=== PATIENT | male | born 1955 | race Two or more races ===

== ENCOUNTER 2018-10-17 23:16 | Inpatient (IN) | payer OTHER ==
[~2018-10-17] VITALS: Ht 165.1 cm; Wt 83.0 kg
--- NOTE | 2018-10-18 04:34 | NUR ---
RN MS ADMISSION NOTES RECEIVED PATIENT DIRECT ADMIT FROM [facility]. CHIEF COMPLAINT: ABD PAIN, FEVER, CHILLS. PATIENT IS ALERT AND ORIENTED X4, VERBALLY RESPONSIVE, ABLE TO MAKE NEEDS KNOWN. LITHUANIAN SPEAKER. BREATHING EVEN AND UNLABORED. NO SOB NOTED. TOLERATING ROOM AIR. DENIES PAIN OR DISCOMFORT AT THE MOMENT. DENIES N/V. DENIES CP. IV ON RIGHT AC INTACT AND PATENT. SKIN DRY AND WARM TO TOUCH. AFEBRILE. SKIN CHECK RENDERED WITH NO SKIN ISSUES NOTED. ALL BELONGINGS ACCOUNTED FOR. DR. JAYCE JOYNER PAGED FOR ADMISSION ORDERS. ALL OTHER NEEDS ATTENDED TO. SAFETY MEASURES IN PLACE. CALL LIGHT WITHIN REACH. WILL CONTINUE TO MONITOR. Addendum: 10/18/18 at 0701 by KAMALJIT PATRICK RN ORIENTED TO THE USE OF UNIT AMENITIES. INSTRUCTED ON THE USE OF CALL LIGHT.
[2018-10-18] MEDS ORDERED: PRAV10TA40 PO (04:43)
[2018-10-18] MEDS ORDERED: METF-441 PO (04:43)
--- NOTE | 2018-10-18 04:55 | NUR ---
RN MS NOTES PAGED DR. JAYCE JOYNER FOR ADMISSION ORDERS.
[2018-10-18 05:00] VITALS: BP 151/94
--- NOTE | 2018-10-18 05:22 | NUR ---
RN MS NOTES 2ND ATTEMPT TO PAGE DR. JAYCE JOYNER FOR ADMISSION ORDERS.
--- NOTE | 2018-10-18 05:35 | NUR ---
RN MS NOTES DR. JOYNER PAGED BACK AND MADE AWARE OF PATIENT'S ADMISSION. PER DR. JOYNER, HE WILL COME UP TO SEE CHART AND PATIENT.
[2018-10-18] MEDS ORDERED: MAG HYDROX/AL HYDROX/SIMETH 30 ML UDC PO PRN (06:00)
[2018-10-18] MEDS ORDERED: MAGNESIUM HYDROXIDE 30 ML UDC PO PRN (06:00)
[2018-10-18] MEDS ORDERED: PIPERACILLIN /TAZOBACTAM 3.375 G in IV D5W 50 ML IV SCH (06:00)
[2018-10-18] MEDS ORDERED: Z GUARD REMEDY 2 OZ OINT TP PRN (06:00)
[2018-10-18] MEDS ORDERED: MORPHINE SULFATE INJ 2 MG/ML DISP.SYRIN IV PRN (06:00)
[2018-10-18] MEDS ORDERED: DEXTROSE 50%-WATER 50 ML DISP.SYRIN IV PRN (06:00)
[2018-10-18] MEDS ORDERED: ONDANSETRON HCL/PF 4 MG/2 ML VIAL IVP PRN (06:00)
[2018-10-18] MEDS ORDERED: ZOLPIDEM TARTRATE 5 MG TABLET PO PRN (06:00)
[2018-10-18] MEDS: IV NS 0.9% 1,000 ML IV PRN (06:26)
[2018-10-18] MEDS ORDERED: PIPERACILLIN /TAZOBACTAM 3.375 G VIAL IV ONE (06:37)
[2018-10-18] MEDS: BLOOD SUGAR DIAGNOSTIC 1 EACH STRIP IN SCH ×4 (06:39→21:03)
[2018-10-18] MEDS: INSULIN REGULAR, HUMAN 100 UNIT/ML 3 ML VIAL SQ PRN ×2 (06:39→21:42)
--- NOTE | 2018-10-18 06:58 | NUR ---
RN MS CLOSING NOTES PATIENT RESTING IN BED. NO ACUTE CHANGES SINCE ADMISSION. BREATHING EVEN AND UNLABORED. NO SOB NOTED. TOLERATING ROOM AIR. COMPLAINED OF HEADACHE. MORPHINE 2MG IV GIVEN. PATIENT AMBULATORY WITH STEADY GAIT. URINAL AT BEDSIDE. ALL OTHER NEEDS ATTENDED TO. SAFETY MEASURES IN PLACE. CALL LIGHT WITHIN REACH. WILL ENDORSE TO ONCOMING NURSE FOR REECE.
[2018-10-18] MEDS ORDERED: PIPERACILLIN /TAZOBACTAM 3.375 G in IV D5W 50 ML IV ONE (07:00)
[2018-10-18 07:18] LABS: BASOPHILS % (AUTO) 0.2 % (0.0-2.0); HEMATOCRIT 45 % (39-51); LYMPHOCYTES # (AUTO) 0.6 /CMM (0.8-4.8); LYMPHOCYTES % (AUTO) 4.8 % (20.0-44.0); MEAN CORPUSCULAR HGB CONC 34 g/dl (31.0-36.0); MEAN CORPUSCULAR VOLUME 91 fL (80-96); MONOCYTES # (AUTO) 0.9 /CMM (0.1-1.30); MONOCYTES % (AUTO) 6.7 % (2.0-12.0); NEUTROPHILS # (AUTO) 11.3 /CMM (1.8-8.9); NEUTROPHILS % (AUTO) 86.3 % (43.0-81.0); PLATELET COUNT (AUTO) 245 /CMM (150-450); WHITE BLOOD COUNT (AUTO) 13.1 K/uL (4.3-11.0)
[2018-10-18 07:32] LABS: ALBUMIN 3.4 g/dL (3.4-5.0); BILIRUBIN,TOTAL 5.6 mg/dL (0.2-1.0); CALCIUM, SERUM 8.6 mg/dL (8.5-10.1); CREATININE 0.9 mg/dL (0.6-1.3); MAGNESIUM 1.9 mg/dL (1.8-2.4); POTASSIUM 3.8 mmol/L (3.5-5.1); TOTAL PROTEIN, SERUM 7.5 g/dL (6.4-8.2)
[2018-10-18 07:41] LABS: THYROID STIMULATING HORMONE 0.602 uIU/mL (0.358-3.74)
[2018-10-18 08:06] VITALS: BP 125/70
--- NOTE | 2018-10-18 08:58 | NUR ---
RN MS NOTES PT IN BED, AWAKE, ALERT AND ORIENTED, SEEN AND EXAMINED BY DR. CORTES, PLAN OF CARE DISCUSSED WITH PT, VERBALIZED UNDERSTANDING.
[2018-10-18] MEDS: PIPERACILLIN /TAZOBACTAM 3.375 G in IV D5W 100 ML IV SCH ×2 (12:36→20:09)
[2018-10-18] MEDS ORDERED: Sodium Phosphate 15 MMOL in IV D5W 250 ML IV ONE (13:00)
--- NOTE | 2018-10-18 13:00 | NUR ---
RN MS NOTES PT IN BED, RESTING, NOT IN PAIN, COMPLETED MRCP, TOLERATING WELL, ABLE TO WALK TO THE BATHROOM WITH STEADY GAIT, AWAITING GI CONSULT.
[2018-10-18] MEDS: ACETAMINOPHEN 325 MG TABLET PO PRN (15:51)
[2018-10-18 16:00] VITALS: BP 132/84
--- NOTE | 2018-10-18 18:30 | NUR ---
RN MS NOTES PT IN BED, AWAKE, ALERT AND ORIENTED, NO COMPLAINT OF PAIN, NOTED WITH ELEVATED TEMP EARLIER, TYLENOL GIVEN ORDERED, COOLING MEASURES PROVIDED, MD INFORMED, PT SEEN BY DR. BERRIOS, PLAN OF CARE DISCUSSED WITH PT, VERBALIZED UNDERSTANDING, PER MD OK TO START ON CLEAR LIQUID DIET AND ADVANCE DIET TOLERATED, MD ALSO ORDERED TO GIVE MAGNESIUM 2 MG IV, NOTED AND CARRIED OUT.
[2018-10-18] MEDS: Magnesium 1GM/D5W 100ML PREMIX 100 ML IV SCH ×2 (19:49→21:01)
[2018-10-18 20:58] VITALS: BP 117/68
[2018-10-19] MEDS: PIPERACILLIN /TAZOBACTAM 3.375 G in IV D5W 100 ML IV SCH ×3 (04:04→20:26)
[2018-10-19] MEDS: BLOOD SUGAR DIAGNOSTIC 1 EACH STRIP IN SCH ×4 (06:27→21:33)
[2018-10-19] MEDS: INSULIN REGULAR, HUMAN 100 UNIT/ML 3 ML VIAL SQ PRN ×3 (06:28→17:27)
[2018-10-19 06:34] LABS: BASOPHILS % (AUTO) 0.1 % (0.0-2.0); EOSINOPHILS % (AUTO) 1.4 % (0.0-6.0); HEMATOCRIT 40 % (39-51); HEMOGLOBIN 13.6 g/dL (13.5-17.5); LYMPHOCYTES # (AUTO) 0.4 /CMM (0.8-4.8); MEAN CORPUSCULAR HGB CONC 34 g/dl (31.0-36.0); MEAN CORPUSCULAR VOLUME 91 fL (80-96); MONOCYTES # (AUTO) 0.6 /CMM (0.1-1.30); NEUTROPHILS # (AUTO) 8.5 /CMM (1.8-8.9); NEUTROPHILS % (AUTO) 88.5 % (43.0-81.0); PLATELET COUNT (AUTO) 203 /CMM (150-450); RED BLOOD CELL COUNT(AUTO) 4.41 MIL/uL (4.5-6.0); WHITE BLOOD COUNT (AUTO) 9.6 K/uL (4.3-11.0)
[2018-10-19] MEDS: ACETAMINOPHEN 325 MG TABLET PO PRN (06:35)
--- NOTE | 2018-10-19 06:51 | NUR ---
MS RN NOTES AWAKE & RESPONSIVE. NOT IN ANY DISTRESS. NO SOB NOTED. DENIES ANY PAIN OR DISCOMFORT AT THIS TIME. MONITORED ACCORDINGLY. CALL LIGHT WITHIN REACH. BED IN LOWEST POSITION. SR UP X 3 WITH BED ALARM ON FOR SAFETY. WILL ENDORSE TO NEXT SHIFT.
[2018-10-19 07:02] LABS: ALBUMIN 2.7 g/dL (3.4-5.0); BILIRUBIN,TOTAL 2.5 mg/dL (0.2-1.0); CALCIUM, SERUM 8.2 mg/dL (8.5-10.1); CREATININE 0.9 mg/dL (0.6-1.3); PHOSPHORUS 1.5 mg/dL (2.5-4.9); POTASSIUM 3.5 mmol/L (3.5-5.1); TOTAL PROTEIN, SERUM 6.7 g/dL (6.4-8.2)
--- NOTE | 2018-10-19 07:37 | NUR ---
MS/RN OPENING NOTE PATIENT IN BED IN STABLE CONDITION. A/O X 4. NO SIGNS OF ACUTE DISTRESS. NO COMPLAIN OF PAIN OR DISCOMFORT. ALL NEEDS ATTENDED TO. CALL LIGHT WITHIN REACH. WILL CONTINUE TO MONITOR TO ENSURE SAFETY.
[2018-10-19 08:00] VITALS: BP 120/76
--- NOTE | 2018-10-19 08:53 | NUR ---
MS/RN SEEN AND EXAMINED BY DR CORTES WITH ORDERS TO GET RECORDS OF BLOOD CX AND URINE CX FROM [facility].
--- NOTE | 2018-10-19 10:54 | NUR ---
MS/RN RECEIVED RECORDS FROM [facility] AND PLACED IN CHART. DR BERRIOS MADE AWARE REGARDING PENDING CONSULT.
[2018-10-19] MEDS ORDERED: NEUTRA PHOS 1 POWD.PACKET NG ONE (11:00)
[2018-10-19 15:42] VITALS: BP 135/68
--- NOTE | 2018-10-19 18:14 | NUR ---
MS/RN PATIENT IN BED IN STABLE CONDITION. A/O X 4, ARMENIAN SPEAKING. NO SIGNS OF ACUTE DISTRESS.NO COMPLAIN OF PAIN OR DISCOMFORT. ALL NEEDS ATTENDED TO. CALL LIGHT WITHIN REACH. WILL ENDORSE TO NEXT SHIFT FOR CONTINUITY OF CARE.
[2018-10-19] MEDS: IV NS 0.9% 1,000 ML IV PRN (18:22)
[2018-10-19 20:00] VITALS: BP 146/77
--- NOTE | 2018-10-19 21:40 | NUR ---
MS RN NOTES RECEIVED PATIENT AWAKE IN BED WITH NO DISTRESS NOTED. CALL LIGHT WITHIN REACH. NO C/O PAIN OR DISCOMFORT. PERIPHERAL LINE INTACT AND PATENT. ENCOURAGED USE OF CALL LIGHT FOR ASSISTANCE AND VERBALIZED GOOD UNDERSTANDING. BED IN LOW LOCK SETTING. ROOM FREE OF CLUTTER AND BELONGINGS KEPT NEAR BEDSIDE. WILL CONTINUE TO MONITOR
[2018-10-20] MEDS: PIPERACILLIN /TAZOBACTAM 3.375 G in IV D5W 100 ML IV SCH ×3 (04:45→20:23)
--- NOTE | 2018-10-20 06:19 | NUR ---
MS RN NOTES PATIENT ASLEEP IN BED WITH NO DISTRESS NOTED. CALL LIGHT WITHIN REACH. NO C/O PAIN OR DISCOMFORT. ALL DUE MEDS GIVEN ORDERED WITH NO ASE NOTED. PERIPHERAL LINE INTACT AND PATENT. BED IN LOW LOCK SETTING. ROOM FREE OF CLUTTER AND BELONGINGS KEPT NEAR BEDSIDE. WILL CONTINUE TO MONITOR
[2018-10-20] MEDS: BLOOD SUGAR DIAGNOSTIC 1 EACH STRIP IN SCH ×4 (06:33→22:02)
[2018-10-20 06:55] LABS: BASOPHILS % (AUTO) 0.5 % (0.0-2.0); EOSINOPHILS % (AUTO) 5.3 % (0.0-6.0); HEMATOCRIT 40 % (39-51); HEMOGLOBIN 13.4 g/dL (13.5-17.5); LYMPHOCYTES % (AUTO) 14.8 % (20.0-44.0); MEAN CORPUSCULAR HGB CONC 34 g/dl (31.0-36.0); MEAN CORPUSCULAR VOLUME 90 fL (80-96); MONOCYTES # (AUTO) 0.7 /CMM (0.1-1.30); MONOCYTES % (AUTO) 11.3 % (2.0-12.0); NEUTROPHILS # (AUTO) 4.5 /CMM (1.8-8.9); NEUTROPHILS % (AUTO) 68.1 % (43.0-81.0); PLATELET COUNT (AUTO) 209 /CMM (150-450); RED BLOOD CELL COUNT(AUTO) 4.36 MIL/uL (4.5-6.0); WHITE BLOOD COUNT (AUTO) 6.5 K/uL (4.3-11.0)
[2018-10-20 07:03] LABS: CALCIUM, SERUM 8.1 mg/dL (8.5-10.1); CREATININE 0.8 mg/dL (0.6-1.3); PHOSPHORUS 2.9 mg/dL (2.5-4.9); POTASSIUM 3.6 mmol/L (3.5-5.1)
--- NOTE | 2018-10-20 07:19 | NUR ---
MS/RN OPENING NOTE PATIENT IN BED ASLEEP IN STABLE CONDITION. UPON REACH EASILY AWAKE. NO SIGNS OF ACUTE DISTRESS. NO COMPLAIN OF PAIN OR DISCOMFORT. ALL NEEDS ATTENDED TO AT THIS TIME. CALL LIGHT WITHIN REACH. WILL CONTINUE TO MONITOR TO ENSURE SAFETY.
[2018-10-20 08:00] VITALS: BP 139/81
--- NOTE | 2018-10-20 09:48 | NUR ---
MS/RN SEEN AND EXAMINED BY DR CORTES WITH ORDERS TO DC CLEAR LIQUIDS AND START CCHO DIET, ALSO NOTIFIED PATIENT STILL NOTED WITH ON AND OFF LOW GRADE FEVER WITH ORDER FOR I.D. CONSULT, PER DR CORTES SHE CONTACTED I.D. DEEPALI IBRAHIM.
[2018-10-20] MEDS: INSULIN REGULAR, HUMAN 100 UNIT/ML 3 ML VIAL SQ PRN ×2 (11:39→16:35)
[2018-10-20 16:00] VITALS: BP 116/75
--- NOTE | 2018-10-20 16:35 | NUR ---
MS/RN PATIENT REFUSED REGULAR INSULIN COVERAGE PER SLIDING SCALE, PER PATIENT, "HE DOES NOT TAKE INSULIN AT HOME, THEREFORE HE DOESN'T WANT TO START TAKING INSULIN AND GET USED TO IT." Addendum: 10/20/18 at 1637 by AMARILIS MENA RN MD CORTES NOTIFIED.
--- NOTE | 2018-10-20 18:11 | NUR ---
MS/RN CLOSING NOTE PATIENT IN BED IN STABLE CONDITION. A/O X 4. NO SIGNS OF ACUTE DISTRESS. NO COMPLAIN OF PAIN OR DISCOMFORT. ALL NEEDS ATTENDED TO. CALL LIGHT WITHIN REACH. WILL ENDORSE TO NEXT SHIFT FOR CONTINUITY OF CARE.
[2018-10-20] MEDS: IV NS 0.9% 1,000 ML IV PRN (18:51)
--- NOTE | 2018-10-20 19:15 | NUR ---
RN OPEN NOTES RECEIVED PATIENT AWAKE SITTING IN BED WITH FAMILY AT BEDSIDE. A/OX4. NO SIGNS OF DISTRESS OR DISCOMFORT. BREATHING EVEN AND UNLABORED. IV ACCESS IN L WRIST WITH NS INFUSING, PATENT AND INTACT, NO SIGNS OF REDNESS OR INFILTRATION. DENIES ANY PAIN AT THIS TIME. BED IN LOW LOCKED POSITION WITH SIDE RAILS X2. CALL LIGHT WITHIN REACH. WILL CONTINUE TO MONITOR.
[2018-10-20 20:00] VITALS: BP_SYST 147; BP_DIAS 78; BP_DIAS 81
--- NOTE | 2018-10-20 21:40 | NUR ---
RN NOTES PATIENT REFUSED REGULAR INSULIN COVERAGE PER SLIDING [employer] PATIENT HE DOES NOT TAKE INSULIN AT HOME. RISK AND BENEFITS EXPLAINED. PATIENT VERBALIZED UNDERSTANDING. WILL CONTINUE TO MONITOR.
[2018-10-21] MEDS: PIPERACILLIN /TAZOBACTAM 3.375 G in IV D5W 100 ML IV SCH (04:30)
--- NOTE | 2018-10-21 06:55 | NUR ---
RN CLOSING NOTES PATIENT RESTING IN BED. A/OX4. NO SIGNS OF DISTRESS OR DISCOMFORT. BREATHING EVEN AND UNLABORED. IV ACCESS IN L WRIST WITH NS INFUSING, PATENT AND INTACT, NO SIGNS OF REDNESS OR INFILTRATION. DENIES ANY PAIN AT THIS TIME. ALL NEEDS MET. NO SIGNIFICANT CHANGES THROUGH THE NIGHT. BED IN LOW LOCKED POSITION WITH SIDE RAILS X2. CALL LIGHT WITHIN REACH. WILL ENDORSE TO AM SHIFT FOR REECE.
[2018-10-21] MEDS: BLOOD SUGAR DIAGNOSTIC 1 EACH STRIP IN SCH (07:09)
--- NOTE | 2018-10-21 07:22 | NUR ---
RN MS OPENING NOTES Patient received on room air, no sob noted. Patient remains a/o x4. Patient remains with Left wrist #22, NS @ 75 mL per hour. Bed at the lowest setting, call light within reach.
[2018-10-21 07:26] LABS: BASOPHILS % (AUTO) 0.5 % (0.0-2.0); HEMATOCRIT 41 % (39-51); HEMOGLOBIN 13.5 g/dL (13.5-17.5); LYMPHOCYTES # (AUTO) 1.1 /CMM (0.8-4.8); MEAN CORPUSCULAR HGB CONC 33 g/dl (31.0-36.0); MEAN CORPUSCULAR VOLUME 92 fL (80-96); MONOCYTES # (AUTO) 0.8 /CMM (0.1-1.30); MONOCYTES % (AUTO) 11.4 % (2.0-12.0); NEUTROPHILS # (AUTO) 4.4 /CMM (1.8-8.9); NEUTROPHILS % (AUTO) 66.1 % (43.0-81.0); PLATELET COUNT (AUTO) 256 /CMM (150-450); RED BLOOD CELL COUNT(AUTO) 4.45 MIL/uL (4.5-6.0); WHITE BLOOD COUNT (AUTO) 6.7 K/uL (4.3-11.0)
[2018-10-21] MEDS ORDERED: PANTOPRAZOLE 40 MG TABLET.DR PO SCH (07:30)
[2018-10-21 07:55] LABS: CALCIUM, SERUM 8.8 mg/dL (8.5-10.1); CREATININE 0.8 mg/dL (0.6-1.3); MAGNESIUM 1.9 mg/dL (1.8-2.4); PHOSPHORUS 3.3 mg/dL (2.5-4.9); POTASSIUM 3.8 mmol/L (3.5-5.1)
[2018-10-21 08:00] VITALS: BP 145/90
[2018-10-21] MEDS ORDERED: LEVO500T90 PO (10:11)
[2018-10-21] MEDS ORDERED: METR500T PO (10:11)
--- NOTE | 2018-10-21 11:14 | NUR ---
RN MS DISCHARGE NOTES patient discharged with no sob noted, vital signs stable, and has good gait walking. Patient on room air. patient has all the discharge paper work, signed and has no further questions about the discharge order. Patient has the prescription in hand and was with family members going home. Patient has all his valuables with him as well.
== END 2018-10-21 14:14 | disposition home or self-care (01) | DRG 720 ==
LOC: MED 10-18 04:26
PROVIDERS: ADMIT Student in an Organized Health Care Education/Training Program; ATTEND Student in an Organized Health Care Education/Training Program
DX: A41.9 Sepsis, unspecified organism (principal); E11.21 Type 2 diabetes mellitus with diabetic nephropathy; K76.89 Other specified diseases of liver; E44.1 Mild protein-calorie malnutrition; N28.1 Cyst of kidney, acquired; E78.5 Hyperlipidemia, unspecified; N39.0 Urinary tract infection, site not specified; E83.39 Other disorders of phosphorus metabolism; I10 Essential (primary) hypertension; K80.20 Calculus of gallbladder without cholecystitis without obstruction; Z68.30 Body mass index [BMI] 30.0-30.9, adult; R74.0 Nonspecific elevation of levels of transaminase and lactic acid dehydrogenase [LDH]; Z79.84 Long term (current) use of oral hypoglycemic drugs; R10.9 Unspecified abdominal pain
CPT/HCPCS: 36415; 74181-TC; 78226; 80048-TC; 80053-TC; 80061-TC; 82962-TC; 83690-TC; 83735-TC; 84100-TC; 84443-TC; 85025-TC; 85730-TC; 87040-TC; 87081-TC; A9537; A9563; G0378; J1815; J2270; J2543; J3475; J7030; J7050; J7060